=== PATIENT | female | born 1985 ===

== ENCOUNTER 2020-02-15 18:33 | Inpatient (IN) | payer OTHER ==
[~2020-02-15] VITALS: Ht 160 cm; Wt 3.2 kg
[2020-02-15] MEDS ORDERED: PRENATAL CAPLE1 EAC1 PO (20:59)
[2020-02-15] MEDS ORDERED: IRON325 MG PO (20:59)
== END 2020-02-20 12:06 | disposition home or self-care (01) | DRG 787 ==
LOC: LDR 18:33 → SURG-SUITE 02-17 18:55
PROVIDERS: ADMIT Obstetrics & Gynecology
PROC: 4A1HXFZ Monitoring of Products of Conception, Cardiac Rhythm, External Approach (ICD-10-PCS; 2020-02-17)
PROC: 3E033VJ Introduction of Other Hormone into Peripheral Vein, Percutaneous Approach (ICD-10-PCS; 2020-02-17)
PROC: 10D00Z1 Extraction of Products of Conception, Low, Open Approach (ICD-10-PCS; principal; 2020-02-17 16:00)
DX: O62.1 Secondary uterine inertia (principal); O98.32 Other infections with a predominantly sexual mode of transmission complicating childbirth; O48.0 Post-term pregnancy; A60.09 Herpesviral infection of other urogenital tract; Z3A.40 40 weeks gestation of pregnancy; Z37.0 Single live birth